=== PATIENT | female | born 1980 | race Caucasian/White ===

== ENCOUNTER 2016-12-27 16:23 | Emergency (ER) | payer OTHER ==
[~2016-12-27 16:23] MED LIST: IBUP600 PO; PREN1TAB30; VITA100T15 PO
[2016-12-27 17:45] LABS: BACTERIA, URINE RARE /hpf; BLOOD, URINE TRACE (NEG); COMMENT (UR) CULT NOT INDICATED; CULTURE IF INDICATED CULT NOT INDICATED; GLUCOSE,URINE NEG (NEG); KETONE, URINE NEG (NEG); MUCUS URINE FEW /lpf (OCC); NITRITE,URINE NEG (NEG); PH, URINE 6.5 (5.0-8.5); SQUAMOUS EPITHELIAL CELL URINE 1 /hpf (0-5); URINE COLOR YELLOW (YELLW/STRAW)
--- NOTE | 2016-12-27 18:09 | PD ---
HPI Chief Complaint Low back pain and blood in urine Date Seen: Dec 27, 2016 Travel History International Travel<30 Days: No Contact w/Intl Traveler<30Days: No Known Affected Area: No History of Present Illness HPI The patient is 36-year-old white female 32 weeks presents combining of low back pain and blood in the urine. She sees ELICIA for care. She denies any other obstetrical problem no vaginal bleeding leakage of fluid. heart rate tracing is reactive and she is not don, patient states that she had a recent urinalysis done and ruled out infection did show some blood and protein. She has no history of kidney stones or renal disease says she does have a history of frequent UTIs but not in this she hasn't been treated the with antibiotics recently, she denies any vaginal discharge and itching irritation. Para: 2 : 3 History Obstetric History Obstetric History 2 vaginal deliveries Social History Alcohol Use: No Tobacco Use: No Substance Abuse: No Allergies-Medications (Allergen,Severity, Reaction): Coded Allergies: Penicillin (Verified Allergy, Unknown, Hives, 01/05/16) Home Meds Active Scripts Ibuprofen (Motrin 600 Mg Tab)600 Mg Nuu202 Mg PO Q6H PRN ( CRAMPING) # 30 TAB Ref 1 Prov:Radha Newman MD 01/06/16 Reported Medications Cyanocobalamin (Vitamin B12)100 Mcg Hab076 Mcg PO DAILY 01/05/16 Vit W/ Ferrous Fumara ( Vitamin 27-0.8 mg)1 Tab Tab 01/05/16 Review of Systems General / Constitutional: No: Fever, Weight Gain, Chills, Other Eyes: No: Diploplia, Blurred Vision, Visual changes, Pain, Photophobia HENT: No: Headaches, Vertigo, Lightheadedness Cardiovascular: No: Irregular Rhythm, Chest Pain or Discomfort, Palpitations, Tachycardia, Syncope, Varicosities, Edema, Cyanosis Respiratory: No: Cough, Short of Breath, Other Gastrointestinal: No: Nausea, Vomiting, Diarrhea Genitourinary: Hematuria, No: Decreased Urinary Output, Oliguria Musculoskeletal: No: Limited ROM, Weakness, Cramping, Edema, Pain Skin: No Rash, No Itching, No Dryness, No Lumps, No Change in Pigmentation, No Change in Nails, No Alopecia, No Lesions Neurologic: No: Weakness, Dizziness, Syncope, Focal Abnormalities, Coordination Problem, Headache, Slurred Speech, Seizures Psychiatric: No: Depression, Suicidal Ideations, Homicidal Ideation Endocrine: No: Heat Intolerance, Cold Intolerance, Polydipsia, Polyuria, Other Physical Exam Narrative GENERAL: Well-nourished, well-developed patient. SKIN: Warm and dry. HEAD: Normocephalic and atraumatic. EYES: No scleral icterus. No injection or drainage. ENT: No nasal drainage noted. Mucous membranes pink. Airway patent. NECK: Supple, trachea midline. No JVD. CARDIOVASCULAR: Regular rate and rhythm without murmurs, gallops, or rubs. RESPIRATORY: Breath sounds equal bilaterally. No accessory muscle use. BREASTS: Bilateral exam showed no masses , no retractions, no nipple discharge. ABDOMEN/GI: Abdomen soft, non-tender, bowel sounds present, no rebound, no guarding no CVA tenderness Gravid to [32-] weeks size Fundal Height: [32-] GENITOURINARY: External Genitalia: intact and normal in appearance BUS glands: [-] Cervix: [-] Dilatation: [0-] Effacement: [0-] Station: [-3] Presentation: [vtx-] Membranes: [intact ] Uterine Contractions: [-none] FHT's: Category: [1-] Baseline: [-`133] Reactive: [yes-] Variability: [-mod] Decels: [0-] EXTREMITIES: No cyanosis or edema. BACK: Nontender without obvious deformity. No CVA tenderness. NEUROLOGICAL: Awake and alert. Motor and sensory grossly within normal limits. Five out of 5 muscle strength in all muscle groups. Normal speech. Data Data Orders Urinalysis - C+S If Indicated (12/27/16 17:19) Labs Laboratory Tests Test 12/27/16 17:10 Urine Color YELLOW Urine Turbidity CLEAR Urine pH 6.5 Urine Specific [place] 1.020 Urine Protein NEG Urine Glucose (UA) NEG Urine Ketones NEG Urine Occult Blood TRACE Urine Nitrite NEG Urine Bilirubin NEG Urine Urobilinogen LESS THAN 2.0 Urine Leukocyte Esterase NEG Urine RBC 9 Urine WBC 1 Urine Squamous Epithelial 1 Cells Urine Bacteria RARE Urine Mucus FEW Microscopic Urinalysis Comment CULT NOT INDICATED MDM Interpretation(s) Patient is 36-year-old white female 32 weeks presents complaining of low back pain and blood noted in her urine. Patient states that she's seen blood in her urine at home and it was seen and urinalysis recently and the dipstick in the office. Here today on OB ED the urine shows only a trace of blood just a few RBCs no sign of infection, there is no CVA tenderness only some minimal tenderness in the very low back., heart rate tracing is reactive and no contractions noted cervix is closed Plan Plan for patient be discharged home to continue using Tylenol for back pain heating pad there as well as soaking in a hot bath. Try and decrease in the activity she carrying around 1-year-old and all the equipment that goes with that and strained her back. Urine should be rechecked in the doctor's office in the near future Diagnosis Diagnosis: Primary Impression: Hematuria Additional Impression: Low back pain during in third trimester Disposition: 01 DISCHARGE HOME Condition: Stable Marcell Luna II, MD Dec 27, 2016 18:09
== END 2016-12-27 19:28 | disposition home or self-care (01) ==
LOC: HOBED 16:23
DX: O09.523 Supervision of elderly multigravida, third trimester (principal); R31.9 Hematuria, unspecified; M54.5 Low back pain; Z3A.32 32 weeks gestation of pregnancy
CPT/HCPCS: 81001; 99282

== ENCOUNTER → 2017-01-24 | Outpatient (CLI) | payer OTHER ==
[~2017-01-24] MED LIST changes: +BETAMETHASONE SOD PHOS/ACETATE SUSP 30 MG/5 ML VIAL IM ONE; +IBUP-232 PO; +PREN1TAB58
== END ==
LOC: HOBG 12:52
PROVIDERS: ATTEND Obstetrics & Gynecology
DX: O60.02 Preterm labor without delivery, second trimester (principal)
CPT/HCPCS: J0702

== ENCOUNTER → 2017-01-25 | Outpatient (CLI) | payer OTHER | LOC: HOBG 14:16 | PROVIDERS: ATTEND Obstetrics & Gynecology Obstetrics | DX: O60.02 Preterm labor without delivery, second trimester (principal) | CPT/HCPCS: J0702 ==

== ENCOUNTER 2017-01-28 18:04 | Inpatient (IN) | payer OTHER ==
[~2017-01-28] VITALS: Ht 172.7 cm; Wt 83.5 kg
[~2017-01-28 18:04] MED LIST changes: -BETAMETHASONE SOD PHOS/ACETATE SUSP 30 MG/5 ML VIAL IM ONE; -IBUP-232 PO; -PREN1TAB58
[2017-01-28] MEDS ORDERED: HYDROmorphone HCL 2 MG TAB PO ONE (19:15)
[2017-01-28] MEDS ORDERED: PREN1TAB58 (20:44)
[2017-01-28 21:24] LABS: AUTOMATED NEUTROPHIL # 8.6 TH/MM3 (1.8-7.7); BASOPHIL % 0.3 % (0.0-2.0); EOSINOPHIL # 0.1 TH/MM3 (0-0.4); EOSINOPHIL % 0.7 % (0.0-4.0); HEMATOCRIT 36.4 % (35.0-46.0); HEMO FLAGS DIFF FINAL; LYMPH % 18.3 % (9.0-44.0); LYMPHOCYTE # 2.1 TH/MM3 (1.0-4.8); MEAN CELL VOLUME 87.2 FL (80.0-100.0); MEAN CORPUSCULAR HEMOGLOBIN 28.9 PG (27.0-34.0); MEAN CORPUSCULAR HGB CONC 33.2 % (32.0-36.0); MONO % 6.6 % (0.0-8.0); NEUT % 74.1 % (16.0-70.0); PLATELET COUNT 278 TH/MM3 (150-450); RED BLOOD COUNT 4.17 MIL/MM3 (4.00-5.30); RED CELL DISTRIBUTION WIDTH 13.5 % (11.6-17.2); WHITE BLOOD COUNT 11.6 TH/MM3 (4.0-11.0)
[2017-01-28 21:28] LABS: BLOOD, URINE MOD (NEG); COMMENT (UR) CULT NOT INDICATED; CULTURE IF INDICATED CULT NOT INDICATED; GLUCOSE,URINE NEG (NEG); KETONE, URINE NEG (NEG); MUCUS URINE FEW /lpf (OCC); NITRITE,URINE NEG (NEG); SQUAMOUS EPITHELIAL CELL URINE <1 /hpf (0-5); URINE COLOR YELLOW (YELLW/STRAW)
[2017-01-28 23:00] VITALS: RESP 18
[2017-01-29] VITALS (68 sets, daily range): BP systolic 65–129; BP diastolic 42–98; PULSE 58–113; RESP 16–18; TEMP 97.5–98.2
--- NOTE | 2017-01-29 08:10 | PD.LABORPN ---
Subjective Subjective Quiet night, but increasingly painful to sit, ambulate or move left leg in the bed. Has foot drop no UCs, leaking, bleeding Good movement Objective Vital Signs Vital Signs Date Time Temp Pulse Resp B/P Pulse Ox O2 Delivery O2 Flow Rate FiO2 01/29/17 07:27 97.6 16 01/29/17 07:26 65 114/70 01/29/17 05:00 18 01/29/17 03:00 18 01/29/17 01:00 18 Objective EFW 7 pounds pelvis proven cervix long, soft, 2-3 cm posterior strip category 1 Assessment/Plan Assessment and Plan 37 1/2 week IUP with severe left sciatic n impingement affecting motor and sensory in a progressive fashion and unamenable to steroids or analgesics. Has received two IM steroid injections Will proceed with induction and then evaluate neurologic situation post . have discussed risks, benefits, alternatives with family and all agree to this plan. See dictated H & P Linda Hollis MD Jan 29, 2017 08:10
--- NOTE | 2017-01-29 08:14 | MH ---
cc: CANDE RUTHERFORD M.D. DATE OF ADMISSION: 01/28/2017 INDICATION FOR ADMISSION 37-2/7 weeks intrauterine with intolerable sciatic nerve entrapment with both sensory and motor changes in her left leg, admitted for evaluation and a second opinion from perinatology. Probable induction if perinatology agrees. HISTORY OF PRESENT CONDITION The patient is a 36-year-old white female 3, para 1-1-0-2 with LMP 05/12/2016 and EDC 02/16/2017 by LMP and early sono. She is currently at 37-2/7 weeks. Her care began at 6 weeks and she overall did well until she began having severe back pain at approximately 32 weeks estimated gestational age. This has progressed to where she cannot lift her left leg. She has significant pain 03/17. We have tried Medrol dose packs. We have tried muscle relaxants. She is unable to lift her toddler. She is unable to sleep. She has to walk with a cane. She can sit on the birthing ball and has been doing so on a regular basis. Based on these increasing symptoms, I did have her go and get two shorts of betamethasone this weekend right at 37 weeks. So she has received a full course of betamethasone. Her cervix is thick but 2 cm. It is posterior. Her blood pressures have been normotensive in 120s over 60s. She has gained 32 pounds in this . Blood type is O+. Her hemoglobin was 13.9. She has HPV negative. Varicella nonimmune. Rubella immune. Cultures were all negative. was negative. Her Glucola was 96. She is Group B strep positive. PAST MEDICAL HISTORY She has no chronic or systemic illnesses. SOCIAL HISTORY She does not smoke, drink or use illicit drugs. She is a home school coordinator. She did not previously have back issues but this has become overwhelming for her and she is unable to conduct her daily activities. IMPRESSION Late IUP with unremitting back pain and inability to conduct daily activities, possibility of progressive nerve entrapment that may need intervention. She is being admitted tonight for rest and possibly an MRI if we can get it covered to evaluate her spine and make sure that we do not have a neurologic urgent situation. She will also be seen by perinatology in the morning so as we can get their blessing and early induction so that we can address her nerve entrapment. MD KADI Walker/KK /5:14 PM /8:15 AM
[2017-01-29] MEDS ORDERED: OXYTOCIN 30 UNITS-500ML PREMIX 500 ML IV SCH (08:15)
[2017-01-29] MEDS ORDERED: LIDOCAINE HCL 1% 50 ML VIAL INFIL PRN (10:15)
[2017-01-29] MEDS ORDERED: LIDOCAINE HCL 1% 50 ML VIAL I-DERMAL PRN (10:15)
[2017-01-29] MEDS ORDERED: NS 1000 ML IV PRN (10:15)
[2017-01-29] MEDS ORDERED: CITRIC ACID-SODIUM CITRATE LIQ 30 ML UDC PO SCH (10:15)
[2017-01-29] MEDS ORDERED: ONDANSETRON HCL 4 MG/2 ML VIAL IV PRN (10:15)
[2017-01-29] MEDS ORDERED: LACTATED RINGER'S 1000 ML BOLUS IV PRN (10:15)
[2017-01-29] MEDS ORDERED: OXYTOCIN 30 UNITS 500ML PREMIX IV ONE (10:15)
[2017-01-29] MEDS ORDERED: MINERAL OIL 10 ML VIAL TOPICAL PRN (10:15)
[2017-01-29] MEDS ORDERED: NS 500 ML BOLUS IV PRN (10:15)
[2017-01-29] MEDS: CLINDAMYCIN 900 MG in NS 100 ML IV SCH ×2 (10:35→18:00)
[2017-01-29] MEDS: LACTATED RINGER'S 1000 ML IV SCH ×2 (10:35→19:54)
[2017-01-29] MEDS ORDERED: SIMETHICONE 80 MG CHEWABLE TAB PO PRN (11:45)
[2017-01-29] MEDS ORDERED: fentaNYL 2MCG-BUPIV 0.125% INJ 100 ML ONE (15:26)
[2017-01-29] MEDS ORDERED: ePHEDrine/NS 25 MG/5 ML SYR ONE (15:26)
[2017-01-29] MEDS ORDERED: MEASLES, MUMPS, RUBELLA VACCINE 0.5 ML VIAL SQ ONE (16:00)
[2017-01-29] MEDS ORDERED: DIPHTH/TETANUS/ACEL PERTUSSIS (BOOSTER) 0.5 ML VIAL/PFS IM ONE (16:00)
--- NOTE | 2017-01-29 17:57 | PD.OB.DELI ---
Anesthesia: Epidural Episiotomy: None Vaginal Delivery: Normal Presentation: Occiput anterior Nuchal Cord: x1 Delayed cord clamping (45 sec): Yes : Male One Minute : 9 Five Minute : 9 Weight: 7 Placenta: Spontaneous delivery Laceration: No lacerations (true knot in cord) Linda Hollis MD Jan 29, 2017 17:57
[2017-01-29] MEDS ORDERED: WITCH HAZEL 50%/GLYCERIN 12.5% 40 PAD JAR TOPICAL PRN (18:00)
[2017-01-29] MEDS ORDERED: ALUMINUM/MAGNESIUM/SIMETH 30 ML CUP PO PRN (18:00)
[2017-01-29] MEDS ORDERED: ONDANSETRON ODT 4 MG TAB PO PRN (18:00)
[2017-01-29] MEDS ORDERED: BENZOCAINE 20% TOPICAL SPRAY 60 ML CAN TOPICAL PRN (18:00)
[2017-01-29] MEDS ORDERED: SODIUM CHLORIDE 0.9% FLUSH 10 ML FLUSH IV FLUSH PRN (18:00)
[2017-01-29] MEDS ORDERED: ZOLPIDEM TARTRATE 5 MG TAB PO PRN (18:00)
[2017-01-29] MEDS ORDERED: NO SYSTEM NARCOTICS PRN (19:15)
[2017-01-29] MEDS ORDERED: DO NOT ADMINISTER ANTICOAGULANTS PRN (19:15)
[2017-01-29] MEDS: ePHEDrine/NS 25 MG/5 ML SYR IV PRN ×2 (19:16→19:17)
[2017-01-29] MEDS: fentaNYL 2MCG-BUPIV 0.125% 100 ML EPIDURAL SCH ×2 (19:17→19:53)
[2017-01-29] MEDS: DOCUSATE SODIUM 50 MG/SENNA 8.6 MG TAB PO PRN (22:25)
[2017-01-29] MEDS: IBUPROFEN 600 MG TAB PO PRN (22:29)
[2017-01-30] MEDS: ACETAMINOPHEN 325 MG TAB PO PRN ×4 (02:26→16:56)
[2017-01-30] MEDS: IBUPROFEN 600 MG TAB PO PRN ×3 (04:12→16:56)
--- NOTE | 2017-01-30 07:26 | HHI.OB ---
Subjective Post Day: 1 Objective Vitals/I&O Vital Signs Date Time Temp Pulse Resp B/P Pulse Ox O2 Delivery O2 Flow Rate FiO2 01/29/17 22:00 97.6 58 18 101/67 01/29/17 20:01 97.5 72 18 115/62 01/29/17 19:46 74 110/72 01/29/17 19:31 88 117/98 01/29/17 19:23 18 01/29/17 19:15 67 102/65 01/29/17 19:01 62 102/42 01/29/17 18:46 61 104/62 01/29/17 18:31 62 122/57 01/29/17 18:16 64 107/92 01/29/17 18:01 60 119/66 01/29/17 17:45 65 01/29/17 17:40 62 01/29/17 17:35 61 01/29/17 17:31 64 115/68 01/29/17 17:30 63 01/29/17 17:20 61 01/29/17 17:16 63 115/70 01/29/17 17:15 63 01/29/17 17:10 64 01/29/17 17:05 61 01/29/17 17:00 65 01/29/17 17:00 72 110/78 01/29/17 16:55 66 01/29/17 16:53 67 92/53 01/29/17 16:52 61 95/49 01/29/17 16:50 68 99/68 01/29/17 16:50 64 01/29/17 16:47 71 89/54 01/29/17 16:46 65 95/49 01/29/17 16:45 98.1 18 01/29/17 16:45 64 01/29/17 16:40 66 01/29/17 16:35 63 01/29/17 16:31 62 93/52 01/29/17 16:30 64 01/29/17 16:25 58 01/29/17 16:25 62 103/84 01/29/17 16:21 61 01/29/17 16:21 113/60 01/29/17 16:20 63 01/29/17 16:19 107/61 01/29/17 16:19 66 01/29/17 16:17 63 88/73 01/29/17 16:16 59 65/51 01/29/17 16:15 59 01/29/17 16:10 62 105/67 01/29/17 16:10 63 01/29/17 16:05 66 01/29/17 16:05 64 104/73 01/29/17 16:00 66 01/29/17 16:00 65 105/68 01/29/17 15:56 66 102/55 01/29/17 15:55 68 01/29/17 15:51 68 100/69 01/29/17 15:50 67 01/29/17 15:46 83 113/76 01/29/17 15:45 75 01/29/17 15:42 78 129/95 01/29/17 15:40 67 01/29/17 15:35 68 01/29/17 14:51 70 127/81 01/29/17 13:45 98.2 18 01/29/17 13:31 73 114/67 01/29/17 13:01 69 113/70 01/29/17 12:31 67 109/64 01/29/17 12:00 113 118/81 01/29/17 11:37 98.1 18 01/29/17 11:37 72 111/66 01/29/17 11:10 69 111/64 01/29/17 10:37 68 120/79 01/29/17 10:08 71 112/76 01/29/17 09:25 66 117/75 01/29/17 07:27 97.6 16 01/29/17 07:26 65 114/70 Objective Remarks GENERAL: Well-nourished, well-developed patient. CARDIOVASCULAR: Regular rate and rhythm without murmurs, gallops, or rubs. RESPIRATORY: Breath sounds equal bilaterally. No accessory muscle use. ABDOMEN/GI: Abdomen soft, non-tender. Fundus: Firm, non-tender at umbilicus. GENITOURINARY: Light to moderate bleeding. EXTREMITIES: No cyanosis or edema, non-tender, without signs of DVT. Medications and IVs Current Medications Medications (Trade) Dose Ordered Sig/Jay Route Start Time Stop Time Status Last Admin Oxytocin 500 ml @ 0 mls/hr TITRATE IV 01/29/17 08:15 01/29/17 10:05 Lactated Ringer's 1,000 ml @ 125 mls/hr Q8H IV 01/29/17 10:15 01/29/17 10:35 Lactated Ringer's 1,000 ml @ 3,000 mls/hr BOLUS PRN IV 01/29/17 10:15 Sodium Chloride 500 ml @ 1,000 mls/hr BOLUS PRN IV 01/29/17 10:15 (NS 1000 ml Inj) 1,000 ml @ 100 mls/hr Q10H PRN IV 01/29/17 10:15 (Zofran Inj) 4 mg Q6H PRN IV 01/29/17 10:15 (fentaNYL INJ) 50 mcg Q1H PRN IV PUSH 01/29/17 10:15 Fentanyl Citrate 100 mcg 100 mcg Q1H PRN IV PUSH 01/29/17 10:15 (Cleocin Inj/NS Inj) 106 ml @ 200 mls/hr Q8H IV 01/29/17 10:00 01/29/17 10:35 (Muri-Lube Oil) 10 ml UNSCH PRN TOPICAL 01/29/17 10:15 (Mylicon Chew) 80 mg Q6H PRN PO 01/29/17 11:45 01/29/17 12:13 (NS Flush) 2 ml BID IV FLUSH 01/29/17 21:00 (NS Flush) 2 ml UNSCH PRN IV FLUSH 01/29/17 18:00 (Tylenol) 650 mg Q4H PRN PO 01/29/17 18:00 01/30/17 06:06 (Motrin) 600 mg Q6H PRN PO 01/29/17 18:00 01/30/17 04:12 (Americaine 20% Top Spr) 1 spray Q4H PRN TOPICAL 01/29/17 18:00 01/29/17 22:25 (Tucks Pads) 1 applic QID PRN TOPICAL 01/29/17 18:00 01/29/17 22:25 (Shilpa-Colace) 2 tab Q12H PRN PO 01/29/17 18:00 01/29/17 22:25 (Ambien) 5 mg HS PRN PO 01/29/17 18:00 (Mag-Al Plus Susp Liq) 15 ml Q8H PRN PO 01/29/17 18:00 (Zofran Odt) 4 mg Q6H PRN PO 01/29/17 18:00 Miscellaneous Information No systemic narcotics to be given except... UNSCH PRN .XX 01/29/17 19:15 01/30/17 19:14 Miscellaneous Information DO NOT ADMINISTER ANY ANTICOAGUL... UNSCH PRN .XX 01/29/17 19:15 01/30/17 19:14 (fentaNYL 2MCG-BUPIV 0.125% INJ) 100 ml @ 0 mls/hr TITRATE EPIDURAL 01/29/17 19:15 01/29/17 19:53 (ePHEDrine/NS 25 MG/5 ML SYR) 10 mg UNSCH PRN IV 01/29/17 19:15 01/30/17 19:14 01/29/17 19:17 Assessment/Plan Problem List: (1) (spontaneous vaginal delivery) Assessment and Plan PPD#1 cramping pain but manageable routine PP care d/c planning for tmrw Discharge Planning routine, tmrw Radha Newman MD Jan 30, 2017 07:25
[2017-01-30 08:30] VITALS: BP 106/70; PULSE 57; RESP 16; TEMP 97.5
[2017-01-30] MEDS ORDERED: oxyCODONE/ACETAMINOPHEN 5 MG/325 MG TAB PO PRN ×2 (08:30)
[2017-01-30] MEDS: SODIUM CHLORIDE 0.9% FLUSH 10 ML FLUSH IV FLUSH SCH ×2 (09:00→21:00)
[2017-01-30] MEDS: DOCUSATE SODIUM 50 MG/SENNA 8.6 MG TAB PO PRN (11:05)
[2017-01-30 20:00] VITALS: BP 116/74; PULSE 56; RESP 18; TEMP 97.2
[2017-01-31] MEDS: IBUPROFEN 600 MG TAB PO PRN (02:57)
[2017-01-31 08:50] VITALS: BP 125/87; PULSE 61; RESP 20; TEMP 97.7
[2017-01-31] MEDS: SODIUM CHLORIDE 0.9% FLUSH 10 ML FLUSH IV FLUSH SCH (09:00)
--- NOTE | 2017-01-31 11:24 | HHI.OB ---
Subjective Post Day: 2 Remarks Doing well nursing ] no issues for circ-- counseled Objective Vitals/I&O Vital Signs Date Time Temp Pulse Resp B/P Pulse Ox O2 Delivery O2 Flow Rate FiO2 01/31/17 08:50 61 20 125/87 01/31/17 08:50 97.7 01/30/17 20:00 56 18 116/74 01/30/17 20:00 97.2 Objective Remarks GENERAL: Well-nourished, well-developed patient. CARDIOVASCULAR: Regular rate and rhythm without murmurs, gallops, or rubs. RESPIRATORY: Breath sounds equal bilaterally. No accessory muscle use. ABDOMEN/GI: Abdomen soft, non-tender. Fundus: Firm, non-tender at umbilicus. GENITOURINARY: Light to moderate bleeding. EXTREMITIES: No cyanosis or edema, non-tender, without signs of DVT. Medications and IVs Current Medications Medications (Trade) Dose Ordered Sig/Jay Route Start Time Stop Time Status Last Admin Oxytocin 500 ml @ 0 mls/hr TITRATE IV 01/29/17 08:15 01/29/17 10:05 Lactated Ringer's 1,000 ml @ 125 mls/hr Q8H IV 01/29/17 10:15 01/29/17 10:35 Lactated Ringer's 1,000 ml @ 3,000 mls/hr BOLUS PRN IV 01/29/17 10:15 Sodium Chloride 500 ml @ 1,000 mls/hr BOLUS PRN IV 01/29/17 10:15 (NS 1000 ml Inj) 1,000 ml @ 100 mls/hr Q10H PRN IV 01/29/17 10:15 Ondansetron HCl 4 mg 4 mg Q6H PRN IV 01/29/17 10:15 (Cleocin Inj/NS Inj) 106 ml @ 200 mls/hr Q8H IV 01/29/17 10:00 01/29/17 10:35 (Muri-Lube Oil) 10 ml UNSCH PRN TOPICAL 01/29/17 10:15 (Mylicon Chew) 80 mg Q6H PRN PO 01/29/17 11:45 01/29/17 12:13 (NS Flush) 2 ml BID IV FLUSH 01/29/17 21:00 (NS Flush) 2 ml UNSCH PRN IV FLUSH 01/29/17 18:00 (Tylenol) 650 mg Q4H PRN PO 01/29/17 18:00 01/30/17 16:56 (Motrin) 600 mg Q6H PRN PO 01/29/17 18:00 01/31/17 02:57 (Americaine 20% Top Spr) 1 spray Q4H PRN TOPICAL 01/29/17 18:00 01/29/17 22:25 (Tucks Pads) 1 applic QID PRN TOPICAL 01/29/17 18:00 01/29/17 22:25 (Shilpa-Colace) 2 tab Q12H PRN PO 01/29/17 18:00 01/30/17 11:05 (Ambien) 5 mg HS PRN PO 01/29/17 18:00 (Mag-Al Plus Susp Liq) 15 ml Q8H PRN PO 01/29/17 18:00 Ondansetron HCl 4 mg 4 mg Q6H PRN PO 01/29/17 18:00 (fentaNYL 2MCG-BUPIV 0.125% INJ) 100 ml @ 0 mls/hr TITRATE EPIDURAL 01/29/17 19:15 01/29/17 19:53 (Percocet 5-325 Mg) 1 tab Q4H PRN PO 01/30/17 08:30 (Percocet 5-325 Mg) 2 tab Q4H PRN PO 01/30/17 08:30 Assessment/Plan Problem List: (1) (spontaneous vaginal delivery) Assessment and Plan PPD#2 ready for discharge post circumcision Discharge Planning routine, tmrw Linda Hollis MD Jan 31, 2017 11:24
[2017-01-31] MEDS ORDERED: IBUP-232 PO (11:25)
--- NOTE | 2017-01-31 11:26 | HHI.DCPOC ---
Discharge Care Plan Report Symptoms to Your Doctor -Temperature above 100.5 degrees -Redness, of incision or excessive or foul smelling drainage -Unusual pain or calf pain -Increased vaginal bleeding -Painful or difficulty urinating -Feelings of extreme sadness or anxiety after 2 weeks Goals to Promote Your Health * To prevent worsening of your condition and complications * To maintain your health at the optimal level Directions to Meet Your Goals Take your medications as prescribed Follow your dietary instruction Follow activity as directed Ensure plenty of rest for recovery Drink fluids for hydration Keep your appointments as scheduled Take your immunizations and boosters as scheduled If your symptoms worsen call your PCP, if no PCP go to Urgent Care Center or Emergency Room Smoking is Dangerous to Your Health. Avoid second hand smoke Call the 24-hour crisis hotline for domestic abuse at Linda Hollis MD Jan 31, 2017 11:26
== END 2017-01-31 17:31 | disposition home or self-care (01) | DRG 775 ==
LOC: H2EA 18:04 → H2EB 01-29 09:06 → H1EA 01-29 21:40
PROVIDERS: ADMIT Obstetrics & Gynecology; ATTEND Obstetrics & Gynecology
PROC: 10E0XZZ Delivery of Products of Conception, External Approach (ICD-10-PCS; principal; 2017-01-28)
PROC: 3E0R3CZ (ICD-10-PCS; 2017-01-28)
PROC: 00HU33Z Insertion of Infusion Device into Spinal Canal, Percutaneous Approach (ICD-10-PCS; 2017-01-28)
DX: O69.81X0 Labor and delivery complicated by cord around neck, without compression, not applicable or unspecified (principal); G58.9 Mononeuropathy, unspecified; M21.379 Foot drop, unspecified foot; Z37.0 Single live birth; Z3A.37 37 weeks gestation of pregnancy; M54.30 Sciatica, unspecified side
CPT/HCPCS: 81001; 85025; 86850; 86900; 86901; 90715; J2590; J7120